=== PATIENT | female | born 1995 | race Caucasian/White ===

== ENCOUNTER 2018-06-09 11:35 | Outpatient (CLI) | payer OTHER ==
[2018-06-09 13:27] LABS: ADD UMIC YES; UR ASCORBIC ACID NEGATIVE (NEGATIVE); UR BACTERIA FEW /HPF (NONE SEEN); UR BILIRUBIN (Dip) NEGATIVE (NEGATIVE); UR BLOOD (Dip) NEGATIVE (NEGATIVE); UR CLARITY CLOUDY (CLEAR); UR COLOR YELLOW (YELLOW); UR GLUCOSE (Dip) NEGATIVE (NEGATIVE); UR KETONES (Dip) TRACE mg/dL (NEGATIVE); UR LEUKOCYTE ESTERASE (Dip) 3+ Leu/ul (NEGATIVE); UR NITRITE (Dip) NEGATIVE (NEGATIVE); UR RBC 2 /HPF (0-5); UR SPECIFIC GRAVITY (Dip) 1.013 (1.003-1.030); UR SQUAMOUS EPITHELIAL CELL MANY /HPF (FEW); UR TOTAL PROTEIN (Dip) NEGATIVE (NEGATIVE); UR UROBILINOGEN (Dip) NEGATIVE (NEGATIVE); UR WBC 6 /HPF (0-5)
[2018-06-09] MEDS: TERBUTALINE 1 MG/ML INJ SC (16:17)
[2018-06-09] MEDS: LACTATED RINGER'S 1,000 ML IV (16:18)
== END 2018-06-09 18:40 | disposition home or self-care (01) ==
LOC: OBT 11:35 → L-D 11:37 → OBT 18:40
DX: O26.893 Other specified pregnancy related conditions, third trimester (principal); Z3A.31 31 weeks gestation of pregnancy; R10.2 Pelvic and perineal pain
CPT/HCPCS: 76705; 76815; 76817; 81001; 82731; 87086; 96360; 96372

== ENCOUNTER 2018-07-31 08:41 | Outpatient (CLI) | payer OTHER ==
[2018-07-31 09:50] LABS: RUPTURE FETAL MEMBRANES NEGATIVE (NEGATIVE)
[2018-07-31 12:29] LABS: ADD UMIC YES; UR ASCORBIC ACID NEGATIVE (NEGATIVE); UR BACTERIA FEW /HPF (NONE SEEN); UR BILIRUBIN (Dip) NEGATIVE (NEGATIVE); UR BLOOD (Dip) NEGATIVE (NEGATIVE); UR CLARITY CLOUDY (CLEAR); UR COLOR YELLOW (YELLOW); UR GLUCOSE (Dip) NEGATIVE (NEGATIVE); UR KETONES (Dip) NEGATIVE (NEGATIVE); UR LEUKOCYTE ESTERASE (Dip) 3+ Leu/ul (NEGATIVE); UR NITRITE (Dip) NEGATIVE (NEGATIVE); UR RBC 2 /HPF (0-5); UR SPECIFIC GRAVITY (Dip) 1.008 (1.003-1.030); UR SQUAMOUS EPITHELIAL CELL MANY /HPF (FEW); UR TOTAL PROTEIN (Dip) NEGATIVE (NEGATIVE); UR UROBILINOGEN (Dip) NEGATIVE (NEGATIVE); UR WBC 16 /HPF (0-5)
[2018-07-31] MEDS: CEFTRIAXONE 2 GM/50 ML (PMX) 50 ML IVPB (13:02)
[2018-07-31] MEDS: SOD CHLORIDE 0.9% 1,000 ML IV (13:02)
[2018-07-31 14:12] LABS: ADD MAN DIFF? NO
[2018-07-31 14:15] LABS: BASOPHILS % 0.3 % (0.0-2.0); EOSINOPHILS # 0.2 10^3/ul (0.0-0.5); EOSINOPHILS % 1.7 % (0.0-7.0); HEMATOCRIT 34.1 % (37.0-47.0); HEMOGLOBIN 11.3 g/dl (12.0-16.0); LYMPHOCYTES # 2.1 10^3/ul (0.8-2.9); LYMPHOCYTES % 22.6 % (15.0-51.0); MEAN CORPUSCULAR HEMOGLOBIN 31.6 pg (29.0-33.0); MEAN CORPUSCULAR HGB CONC 33.1 g/dl (32.0-37.0); MEAN CORPUSCULAR VOLUME 95.3 fl (82.0-101.0); MEAN PLATELET VOLUME 10.9 fl (7.4-10.4); MONOCYTE # 0.6 10^3/ul (0.3-0.9); MONOCYTES % 5.9 % (0.0-11.0); NEUTROPHIL # 6.5 10^3/ul (1.6-7.5); NEUTROPHILS % 68.9 % (39.0-77.0); PLATELET COUNT 377 10^3/UL (140-415); RED BLOOD COUNT 3.58 10^6/ul (4.20-5.40); RED CELL DISTRIBUTION WIDTH 14.3 % (11.5-14.5)
[2018-07-31 14:15] LABS: WHITE BLOOD COUNT 9.5 10^3/ul (4.8-10.8)
[2018-07-31 14:34] LABS: ALANINE AMINOTRANSFERASE 9 IU/L (13-69); ALBUMIN 3.3 g/dl (3.3-4.9); ALKALINE PHOSPHATASE 266 IU/L (42-121); ANION GAP 7 (5-13); ASPARTATE AMINO TRANSFERASE 23 IU/L (15-46); BILIRUBIN,INDIRECT 0.2 mg/dl (0-1.1); BILIRUBIN,TOTAL 0.2 mg/dl (0.2-1.3); BLOOD UREA NITROGEN 8 mg/dl (7-20); CALCIUM 9.3 mg/dl (8.4-10.2); CARBON DIOXIDE 24 mmol/L (21-31); CHLORIDE 109 mmol/L (97-110); CREATININE 0.46 mg/dl (0.44-1.00); Estimated GFR > 60 mL/min (>60); GLUCOSE 78 mg/dl (70-220); SODIUM 140 mmol/L (135-144); TOTAL PROTEIN 6.6 g/dl (6.1-8.1)
== END 2018-07-31 14:50 | disposition home or self-care (01) ==
LOC: OBT 08:41 → L-D 08:42 → OBT 14:50
DX: O36.5930 Maternal care for other known or suspected poor fetal growth, third trimester, not applicable or unspecified (principal); Z3A.39 39 weeks gestation of pregnancy
CPT/HCPCS: 76815; 76818; 80053; 81001; 84112; 85025; 87086; 96360; 96361

== ENCOUNTER 2018-08-02 11:02 | Inpatient (IN) | payer MEDICAID ==
[2018-08-02] MEDS ORDERED: OXYTOCIN 30 UNITS/LR 500 ML IV (15:30)
[2018-08-02] MEDS ORDERED: CARBOPROST 250 MCG INJ IM (15:30)
[2018-08-02] MEDS ORDERED: AMPICILLIN 2 GM/NS (PMX) 100 ML IV (15:30)
[2018-08-02] MEDS ORDERED: MISOPROSTOL 200 MCG TAB PR (15:30)
[2018-08-02] MEDS ORDERED: BUTORPHANOL 2 MG INJ IV (15:30)
[2018-08-02] MEDS ORDERED: LIDOCAINE 1% (MPF) 30 ML INJ INJ (15:30)
[2018-08-02] MEDS: LACTATED RINGER'S 1,000 ML IV ×2 (15:49→19:15)
[2018-08-02 15:59] LABS: ADD MAN DIFF? NO
[2018-08-02 16:03] LABS: BASOPHILS % 0.3 % (0.0-2.0); EOSINOPHILS # 0.1 10^3/ul (0.0-0.5); EOSINOPHILS % 1.3 % (0.0-7.0); HEMATOCRIT 34.3 % (37.0-47.0); HEMOGLOBIN 11.5 g/dl (12.0-16.0); LYMPHOCYTES # 2.1 10^3/ul (0.8-2.9); LYMPHOCYTES % 19.9 % (15.0-51.0); MEAN CORPUSCULAR HEMOGLOBIN 31.7 pg (29.0-33.0); MEAN CORPUSCULAR HGB CONC 33.5 g/dl (32.0-37.0); MEAN CORPUSCULAR VOLUME 94.5 fl (82.0-101.0); MEAN PLATELET VOLUME 11.1 fl (7.4-10.4); MONOCYTE # 0.6 10^3/ul (0.3-0.9); MONOCYTES % 5.5 % (0.0-11.0); NEUTROPHIL # 7.5 10^3/ul (1.6-7.5); NEUTROPHILS % 72.5 % (39.0-77.0); PLATELET COUNT 388 10^3/UL (140-415); RED BLOOD COUNT 3.63 10^6/ul (4.20-5.40); RED CELL DISTRIBUTION WIDTH 14.1 % (11.5-14.5)
[2018-08-02 16:03] LABS: WHITE BLOOD COUNT 10.4 10^3/ul (4.8-10.8)
[2018-08-02] MEDS: OXYTOCIN 30 UNITS/LR 500 ML IV (16:15)
[2018-08-02 16:22] LABS: PARTIAL THROMBOPLASTIN TIME 26.3 Sec (23.0-35.0); PROTIME 12.3 Sec (11.9-14.9)
[2018-08-02 17:05] LABS: RAPID PLASMA REAGIN NONREACTIVE (NR)
[2018-08-02] MEDS ORDERED: AMPICILLIN 1 GM/NS (PMX) 50 ML IV (18:00)
[2018-08-02] MEDS: DEXTROSE 5%-LR 1,000 ML IV (21:59)
[2018-08-03] MEDS: MINERAL OIL LIGHT 10 ML VIAL TOP (06:00)
[2018-08-03] MEDS: DEXTROSE 5%-LR 1,000 ML IV ×3 (06:23→22:00)
[2018-08-03] MEDS: MISOPROSTOL 50 MCG CAPSULE PO (12:27)
[2018-08-03] MEDS: OXYTOCIN 30 UNITS/LR 500 ML IV (17:50)
[2018-08-04] MEDS ORDERED: DIPHENHYDRAMINE 50 MG INJ IV (00:30)
[2018-08-04] MEDS ORDERED: NALOXONE (0.4 MG/ML) INJ IV (00:30)
[2018-08-04] MEDS ORDERED: ONDANSETRON 4 MG INJ IV ×2 (00:30→09:00)
[2018-08-04] MEDS ORDERED: FENTAnyl 2MCG/ML-ROPIV 0.2% 100 ML (01:15)
[2018-08-04] MEDS: LACTATED RINGER'S 1,000 ML IV ×3 (01:42→06:57)
[2018-08-04] MEDS: DEXTROSE 5%-LR 1,000 ML IV (06:00)
[2018-08-04] MEDS: FENTAnyl 2MCG/ML-ROPIV 0.2% 100 ML BAG EPI (07:25)
[2018-08-04] MEDS: OXYTOCIN 30 UNITS/LR 500 ML IV ×4 (08:56→13:02)
[2018-08-04] MEDS ORDERED: NACL 0.9% 3 ML SYG IV (09:00)
[2018-08-04] MEDS ORDERED: OXYTOCIN 30 UNITS/LR 500 ML IV (09:00)
[2018-08-04] MEDS ORDERED: ACETAMINOPHEN 325 MG TAB PO (09:00)
[2018-08-04] MEDS ORDERED: CARBOPROST 250 MCG INJ IM (09:00)
[2018-08-04] MEDS ORDERED: SENNA/DOCUSATE NA (8.6MG/50MG) TAB PO (09:00)
[2018-08-04] MEDS ORDERED: DIPHENHYDRAMINE 25 MG CAP PO (09:00)
[2018-08-04] MEDS: SENNA/DOCUSATE NA (8.6MG/50MG) TAB PO ×2 (09:00→21:30)
[2018-08-04] MEDS ORDERED: MISOPROSTOL 200 MCG TAB PR (09:00)
[2018-08-04] MEDS ORDERED: METHYLERGONOVINE 0.2 MG INJ IM (09:00)
[2018-08-04] MEDS: METHYLERGONOVINE 0.2 MG INJ IM (09:07)
[2018-08-04] MEDS: IBUPROFEN 600 MG TAB PO ×2 (12:00→17:52)
[2018-08-04] MEDS: WITCH HAZEL/GLYCERIN PAD PR (17:51)
[2018-08-04] MEDS: BENZOCAINE 20% 56 ML SPRAY TOP (17:51)
[2018-08-04] MEDS: LANOLIN HPA 1 PKT TOP (17:52)
[2018-08-05] MEDS: IBUPROFEN 600 MG TAB PO ×5 (00:20→23:37)
[2018-08-05] MEDS: LANOLIN HPA 1 PKT TOP (07:02)
[2018-08-05 08:17] LABS: ADD MAN DIFF? NO
[2018-08-05 08:24] LABS: WHITE BLOOD COUNT 17.7 10^3/ul (4.8-10.8)
[2018-08-05 08:24] LABS: BASOPHIL # 0.1 10^3/ul (0.0-0.1); BASOPHILS % 0.3 % (0.0-2.0); EOSINOPHILS # 0.2 10^3/ul (0.0-0.5); EOSINOPHILS % 1.3 % (0.0-7.0); HEMATOCRIT 24.1 % (37.0-47.0); HEMOGLOBIN 7.9 g/dl (12.0-16.0); LYMPHOCYTES # 3.6 10^3/ul (0.8-2.9); LYMPHOCYTES % 20.5 % (15.0-51.0); MEAN CORPUSCULAR HEMOGLOBIN 31.7 pg (29.0-33.0); MEAN CORPUSCULAR HGB CONC 32.8 g/dl (32.0-37.0); MEAN CORPUSCULAR VOLUME 96.8 fl (82.0-101.0); MEAN PLATELET VOLUME 11.7 fl (7.4-10.4); MONOCYTES % 5.9 % (0.0-11.0); NEUTROPHIL # 12.6 10^3/ul (1.6-7.5); NEUTROPHILS % 71.5 % (39.0-77.0); PLATELET COUNT 294 10^3/UL (140-415); RED BLOOD COUNT 2.49 10^6/ul (4.20-5.40); RED CELL DISTRIBUTION WIDTH 14.4 % (11.5-14.5)
[2018-08-05] MEDS: SENNA/DOCUSATE NA (8.6MG/50MG) TAB PO ×2 (08:56→21:10)
[2018-08-05] MEDS: FERROUS SULFATE (EC) 325 MG TAB PO (21:10)
[2018-08-06] MEDS: IBUPROFEN 600 MG TAB PO ×2 (05:52→11:53)
[2018-08-06 06:41] LABS: ADD MAN DIFF? NO
[2018-08-06 06:45] LABS: WHITE BLOOD COUNT 13.6 10^3/ul (4.8-10.8)
[2018-08-06 06:45] LABS: BASOPHIL # 0.1 10^3/ul (0.0-0.1); BASOPHILS % 0.4 % (0.0-2.0); EOSINOPHILS # 0.3 10^3/ul (0.0-0.5); EOSINOPHILS % 1.9 % (0.0-7.0); HEMATOCRIT 24.9 % (37.0-47.0); HEMOGLOBIN 8.1 g/dl (12.0-16.0); LYMPHOCYTES # 4.4 10^3/ul (0.8-2.9); MEAN CORPUSCULAR HEMOGLOBIN 31.6 pg (29.0-33.0); MEAN CORPUSCULAR HGB CONC 32.5 g/dl (32.0-37.0); MEAN CORPUSCULAR VOLUME 97.3 fl (82.0-101.0); MEAN PLATELET VOLUME 10.8 fl (7.4-10.4); MONOCYTE # 0.8 10^3/ul (0.3-0.9); MONOCYTES % 5.6 % (0.0-11.0); NEUTROPHIL # 8.1 10^3/ul (1.6-7.5); NEUTROPHILS % 59.7 % (39.0-77.0); PLATELET COUNT 314 10^3/UL (140-415); RED BLOOD COUNT 2.56 10^6/ul (4.20-5.40); RED CELL DISTRIBUTION WIDTH 14.4 % (11.5-14.5)
[2018-08-06] MEDS: FERROUS SULFATE (EC) 325 MG TAB PO (08:21)
[2018-08-06] MEDS: SENNA/DOCUSATE NA (8.6MG/50MG) TAB PO (08:22)
[2018-08-06] MEDS ORDERED: MEASLES,MUMPS,RUBELLA VACCINE INJ SC* (09:00)
[2018-08-06] MEDS: LANOLIN HPA 1 PKT TOP (09:29)
== END 2018-08-06 18:12 | disposition home or self-care (01) | DRG 807 ==
LOC: OBT 11:02 → L-D 11:02 → PP1 08-04 13:42 → OBT 13:35 → PP1 08-04 23:12 → L-D 13:35
PROVIDERS: Obstetrics & Gynecology
PROC: 10E0XZZ Delivery of Products of Conception, External Approach (ICD-10-PCS; principal; 2018-08-04)
PROC: 0W8NXZZ Division of Female Perineum, External Approach (ICD-10-PCS; 2018-08-04)
DX: O36.8130 Decreased fetal movements, third trimester, not applicable or unspecified (principal); Z37.0 Single live birth; O69.81X0 Labor and delivery complicated by cord around neck, without compression, not applicable or unspecified; Z3A.39 39 weeks gestation of pregnancy
CPT/HCPCS: 62322; 76818; 82962; 85025; 85610; 85730; 86592; 86850; 86900; 86901; 99464

== ENCOUNTER 2018-08-11 18:41 | Inpatient (IN) | payer MEDICAID ==
[2018-08-11] MEDS: ONDANSETRON 4 MG INJ IV (22:20)
[2018-08-11] MEDS: LABETALOL HCL 20MG INJ IV (22:20)
[2018-08-11 22:21] LABS: ADD MAN DIFF? NO
[2018-08-11 22:23] LABS: WHITE BLOOD COUNT 11.6 10^3/ul (4.8-10.8)
[2018-08-11 22:23] LABS: BASOPHIL # 0.1 10^3/ul (0.0-0.1); BASOPHILS % 0.4 % (0.0-2.0); EOSINOPHILS # 0.2 10^3/ul (0.0-0.5); EOSINOPHILS % 1.7 % (0.0-7.0); HEMATOCRIT 31.6 % (37.0-47.0); HEMOGLOBIN 10.1 g/dl (12.0-16.0); LYMPHOCYTES # 2.8 10^3/ul (0.8-2.9); LYMPHOCYTES % 24.3 % (15.0-51.0); MEAN CORPUSCULAR HEMOGLOBIN 30.9 pg (29.0-33.0); MEAN CORPUSCULAR VOLUME 96.6 fl (82.0-101.0); MEAN PLATELET VOLUME 9.6 fl (7.4-10.4); MONOCYTE # 0.7 10^3/ul (0.3-0.9); NEUTROPHIL # 7.7 10^3/ul (1.6-7.5); NEUTROPHILS % 67.1 % (39.0-77.0); PLATELET COUNT 695 10^3/UL (140-415); RED BLOOD COUNT 3.27 10^6/ul (4.20-5.40); RED CELL DISTRIBUTION WIDTH 14.6 % (11.5-14.5)
[2018-08-11 22:39] LABS: ADD UMIC YES; UR ASCORBIC ACID NEGATIVE (NEGATIVE); UR BILIRUBIN (Dip) NEGATIVE (NEGATIVE); UR BLOOD (Dip) 3+ mg/dL (NEGATIVE); UR CLARITY CLEAR (CLEAR); UR COLOR STRAW (YELLOW); UR GLUCOSE (Dip) NEGATIVE (NEGATIVE); UR KETONES (Dip) NEGATIVE (NEGATIVE); UR LEUKOCYTE ESTERASE (Dip) 1+ Leu/ul (NEGATIVE); UR NITRITE (Dip) NEGATIVE (NEGATIVE); UR RBC 1 /HPF (0-5); UR SPECIFIC GRAVITY (Dip) 1.008 (1.003-1.030); UR TOTAL PROTEIN (Dip) NEGATIVE (NEGATIVE); UR UROBILINOGEN (Dip) NEGATIVE (NEGATIVE); UR WBC 17 /HPF (0-5)
[2018-08-11 22:40] LABS: ALANINE AMINOTRANSFERASE 18 IU/L (13-69); ALBUMIN 3.9 g/dl (3.3-4.9); ALKALINE PHOSPHATASE 220 IU/L (42-121); ANION GAP 9 (5-13); ASPARTATE AMINO TRANSFERASE 21 IU/L (15-46); BILIRUBIN,INDIRECT 0.5 mg/dl (0-1.1); BILIRUBIN,TOTAL 0.5 mg/dl (0.2-1.3); BLOOD UREA NITROGEN 9 mg/dl (7-20); CARBON DIOXIDE 24 mmol/L (21-31); CHLORIDE 110 mmol/L (97-110); CREATININE 0.51 mg/dl (0.44-1.00); Estimated GFR > 60 mL/min (>60); GLUCOSE 91 mg/dl (70-220); LIPASE 63 U/L (23-300); SODIUM 143 mmol/L (135-144); TOTAL PROTEIN 7.8 g/dl (6.1-8.1)
[2018-08-11] MEDS: MAGNESIUM SULFATE 4 GM/100 ML 100 ML IVPB (23:01)
[2018-08-11 23:41] LABS: INR 0.92; PROTIME 12.5 Sec (11.9-14.9)
[2018-08-11 23:42] LABS: PARTIAL THROMBOPLASTIN TIME 37.4 Sec (23.0-35.0)
[2018-08-12] MEDS ORDERED: CA GLUCONATE (GM) 10% 10ML INJ IV (01:00)
[2018-08-12] MEDS ORDERED: MAGNESIUM SULFATE 4 GM/100 ML 100 ML IV (01:00)
[2018-08-12] MEDS ORDERED: NACL 0.9% 3 ML SYG IV (01:00)
[2018-08-12] MEDS: LABETALOL HCL 20MG INJ IV (01:00)
[2018-08-12] MEDS: MAGNESIUM SULFATE 20 GM/500 ML 500 ML IV ×3 (02:30→17:09)
[2018-08-12 02:45] LABS: ALBUMIN 3.7 g/dl (3.3-4.9); ANION GAP 8 (5-13); BLOOD UREA NITROGEN 9 mg/dl (7-20); CALCIUM 9.1 mg/dl (8.4-10.2); CARBON DIOXIDE 25 mmol/L (21-31); CHLORIDE 112 mmol/L (97-110); CREATININE 0.47 mg/dl (0.44-1.00); GLUCOSE 90 mg/dl (70-220); LACTATE DEHYDROGENASE 625 IU/L (313-618); PHOSPHORUS 4.6 mg/dl (2.5-4.9); POTASSIUM 4.5 mmol/L (3.5-5.1); SODIUM 145 mmol/L (135-144)
[2018-08-12 02:46] LABS: ALANINE AMINOTRANSFERASE 27 IU/L (13-69); ALBUMIN 3.7 g/dl (3.3-4.9); ALKALINE PHOSPHATASE 210 IU/L (42-121); ASPARTATE AMINO TRANSFERASE 23 IU/L (15-46); BILIRUBIN,INDIRECT 0.4 mg/dl (0-1.1); BILIRUBIN,TOTAL 0.4 mg/dl (0.2-1.3); TOTAL PROTEIN 7.3 g/dl (6.1-8.1)
[2018-08-12] MEDS: LACTATED RINGER'S 1,000 ML IV ×2 (03:00→14:53)
[2018-08-12 03:19] LABS: URIC ACID 5.3 mg/dl (3.1-7.9)
[2018-08-12] MEDS: LABETALOL 200 MG TAB PO ×2 (03:28→16:19)
[2018-08-12 12:53] LABS: MAGNESIUM 5.6 mg/dl (1.7-2.5)
[2018-08-12 19:30] LABS: MAGNESIUM 5.6 mg/dl (1.7-2.5)
[2018-08-13 01:15] LABS: MAGNESIUM 5.4 mg/dl (1.7-2.5)
[2018-08-13] MEDS: LACTATED RINGER'S 1,000 ML IV (01:46)
[2018-08-13] MEDS: LABETALOL 200 MG TAB PO ×3 (04:20→21:05)
[2018-08-13 06:53] LABS: ADD MAN DIFF? NO
[2018-08-13 06:57] LABS: WHITE BLOOD COUNT 9.2 10^3/ul (4.8-10.8)
[2018-08-13 06:57] LABS: BASOPHIL # 0.1 10^3/ul (0.0-0.1); BASOPHILS % 0.5 % (0.0-2.0); EOSINOPHILS # 0.3 10^3/ul (0.0-0.5); EOSINOPHILS % 3.6 % (0.0-7.0); HEMATOCRIT 27.9 % (37.0-47.0); LYMPHOCYTES % 32.7 % (15.0-51.0); MEAN CORPUSCULAR HEMOGLOBIN 30.9 pg (29.0-33.0); MEAN CORPUSCULAR HGB CONC 32.3 g/dl (32.0-37.0); MEAN CORPUSCULAR VOLUME 95.9 fl (82.0-101.0); MEAN PLATELET VOLUME 9.3 fl (7.4-10.4); MONOCYTE # 0.7 10^3/ul (0.3-0.9); MONOCYTES % 7.5 % (0.0-11.0); NEUTROPHIL # 5.1 10^3/ul (1.6-7.5); NEUTROPHILS % 55.4 % (39.0-77.0); PLATELET COUNT 653 10^3/UL (140-415); RED BLOOD COUNT 2.91 10^6/ul (4.20-5.40); RED CELL DISTRIBUTION WIDTH 14.6 % (11.5-14.5)
[2018-08-13 07:21] LABS: MAGNESIUM 5.3 mg/dl (1.7-2.5)
[2018-08-13] MEDS: ACETAMINOPHEN 325 MG TAB PO (10:27)
[2018-08-14 08:43] LABS: ADD MAN DIFF? NO
[2018-08-14 08:52] LABS: WHITE BLOOD COUNT 9.2 10^3/ul (4.8-10.8)
[2018-08-14 08:52] LABS: BASOPHIL # 0.1 10^3/ul (0.0-0.1); BASOPHILS % 0.8 % (0.0-2.0); EOSINOPHILS # 0.3 10^3/ul (0.0-0.5); EOSINOPHILS % 3.6 % (0.0-7.0); HEMATOCRIT 30.4 % (37.0-47.0); HEMOGLOBIN 9.6 g/dl (12.0-16.0); LYMPHOCYTES # 3.9 10^3/ul (0.8-2.9); LYMPHOCYTES % 41.8 % (15.0-51.0); MEAN CORPUSCULAR HEMOGLOBIN 30.7 pg (29.0-33.0); MEAN CORPUSCULAR HGB CONC 31.6 g/dl (32.0-37.0); MEAN CORPUSCULAR VOLUME 97.1 fl (82.0-101.0); MEAN PLATELET VOLUME 9.6 fl (7.4-10.4); MONOCYTE # 0.7 10^3/ul (0.3-0.9); MONOCYTES % 7.2 % (0.0-11.0); NEUTROPHIL # 4.3 10^3/ul (1.6-7.5); NEUTROPHILS % 46.3 % (39.0-77.0); RED BLOOD COUNT 3.13 10^6/ul (4.20-5.40); RED CELL DISTRIBUTION WIDTH 14.6 % (11.5-14.5)
[2018-08-14 08:54] LABS: PLATELET COUNT 734 10^3/UL (140-415)
[2018-08-14] MEDS: LABETALOL 200 MG TAB PO ×2 (09:07→21:24)
[2018-08-14 09:15] LABS: ALANINE AMINOTRANSFERASE 15 IU/L (13-69); ALBUMIN 3.6 g/dl (3.3-4.9); ALBUMIN/GLOBULIN RATIO 1.12; ALKALINE PHOSPHATASE 161 IU/L (42-121); ANION GAP 7 (5-13); ASPARTATE AMINO TRANSFERASE 22 IU/L (15-46); BILIRUBIN,INDIRECT 0.5 mg/dl (0-1.1); BILIRUBIN,TOTAL 0.5 mg/dl (0.2-1.3); BLOOD UREA NITROGEN 12 mg/dl (7-20); CALCIUM 9.1 mg/dl (8.4-10.2); CARBON DIOXIDE 24 mmol/L (21-31); CHLORIDE 110 mmol/L (97-110); CREATININE 0.65 mg/dl (0.44-1.00); Estimated GFR > 60 mL/min (>60); GLUCOSE 70 mg/dl (70-220); SODIUM 141 mmol/L (135-144); TOTAL PROTEIN 6.8 g/dl (6.1-8.1)
[2018-08-14] MEDS: MAGNESIUM HYDROXIDE 30ML CUP PO (23:30)
[2018-08-15] MEDS: LABETALOL 200 MG TAB PO (09:27)
== END 2018-08-15 15:35 | disposition home or self-care (01) | DRG 776 ==
LOC: PP1 08-13 02:46 → FTE 18:41 → L-D 08-12 00:48
DX: O14.95 Unspecified pre-eclampsia, complicating the puerperium (principal); D47.3 Essential (hemorrhagic) thrombocythemia
CPT/HCPCS: 36415; 80053; 80069; 80076; 81001; 83615; 83690; 83735; 84560; 85025; 85384; 85610; 85730; 93005; 96374; 96375; 99285-25